=== PATIENT | female | born 1950 | race Caucasian/White ===

== ENCOUNTER 2025-04-06 10:42 | Emergency (ER) | payer MEDICARE, OTHER ==
[~2025-04-06] VITALS: Ht 162.6 cm; Wt 59.9 kg
[2025-04-06 11:03] LABS: Source, Urine Clean Catch
[2025-04-06 11:14] LABS: Bilirubin, Urine Neg (Neg); Glucose Qualitative, Urine Neg (Neg); Ketones, Urine Neg (Neg); Leukocyte Esterase, Urine 1+ (Neg); Protein, Urine Neg (Neg); Specific Gravity, Urine 1.010 (1.003-1.022); Urobilinogen, Urine NORM (Normal)
[2025-04-06 11:29] LABS: Color, Urine Pale Yellow (P-Yellow)
[2025-04-06 11:31] LABS: Red Blood Cells, Urine 0-2 /hpf (0-2)
[2025-04-06] MEDS ORDERED: Macrobid 100 M100 MG PO (11:32)
== END 2025-04-06 11:38 | disposition home or self-care (01) ==
LOC: ER 10:42
PROVIDERS: Emergency Medicine
DX: N39.0 Urinary tract infection, site not specified (principal)
CPT/HCPCS: 81001; 87086; 99283